=== PATIENT | male | born 1955 | race Caucasian/White ===

== ENCOUNTER 2017-05-07 19:29 | Inpatient (IN) | payer OTHER ==
[2017-05-07] MEDS ORDERED: IPRATROPIUM/ALBUTEROL 3 ML DEYVIAL ONE (19:44)
[2017-05-07] MEDS ORDERED: methylPREDNISolone SOD SUCC 125 MG/2 ML VIAL ONE (19:44)
[2017-05-07] MEDS ORDERED: methylPREDNISolone SOD SUCC 125 MG/2 ML VIAL IVP ONE (19:45)
[2017-05-07] MEDS ORDERED: IPRATROPIUM/ALBUTEROL 3 ML DEYVIAL IH ONE (19:45)
--- NOTE | 2017-05-07 19:47 | EDPHY ---
General Time Seen by Provider: 05/07/17 19:34 Narrative: CHIEF COMPLAINT: Shortness of breath HISTORY OF PRESENT ILLNESS: Patient arrives by EMS and is seen shortly after arrival. He says that he went down to his basement, where he has been told he has mold, and became acutely short of breath. No chest pain but was feeling significantly short of breath. He was unable to ambulate up the stairs. EMS was activated and they reportedly found him to be 84% on room air. He was recently been diagnosed with COPD without formal pulmonary workup. He does not require supplemental oxygen daytime or nighttime. He does not have a diagnosis of sleep apnea, nor does use a CPAP machine. He is feeling significantly better after receiving DuoNeb treatment EN route. They did not administer any steroid or other medications. He has no chest pain at this time. He has no recent illness. No other associated complaints or modifying factors REVIEW OF SYSTEMS: Ten systems reviewed and are negative unless otherwise noted in the HPI PCP: Rell Valentine SPECIALISTS: None PAST MEDICAL HISTORY: Recent diagnosis COPD. Recently finished a prednisone taper last week PAST SURGICAL HISTORY: No recent surgeries SOCIAL HISTORY: Ninety pack-year history of smoking, quit on December 05. No alcohol or drug use. FAMILY HISTORY: Noncontributory EXAMINATION General Appearance: Alert, no distress. nebulizer treatment Head: normocephalic, atraumatic Eyes: Pupils equal and round, no conjunctival pallor or injection ENT, Mouth: Mucous membranes moist Neck: Normal inspection, supple, non-tender. No meningeal signs Respiratory: Harsh, coarse rhonchi and wheezing expiratory. No retractions or distress. Minimally elevated work of breathing. Cardiovascular: Tachycardic rate. Regular rhythm. No murmur Gastrointestinal: Abdomen is soft and nontender Back: non-tender, no bony abnormalities Neurological: GCS 15. A&O, nonfocal, normal gait Skin: Warm and dry, no rash Extremities: Nontender, no pedal edema Psychiatric: Mood and affect normal DIFFERENTIAL DIAGNOSES: Including but not limited to COPD exacerbation, PE, pneumonia, pleurisy, heart failure, pulmonary edema, pleural effusion MDM: 7:40 p.m. Likely COPD exacerbation. He is feeling much better after his 1st DuoNeb treatment. He has received no other medications in route. I have ordered laboratory studies, EKG, DuoNeb, steroid, chest x-ray. He does not require BiPAP or intubation at this time. Continue to monitor closely. 8:05 p.m. EKG interpretation by Dr. Franco 8:25 p.m. CBC shows mild leukocytosis without a shift. Chemistry unremarkable. Troponin is negative. BNP is negative. Chest x-ray as read by me is consistent with COPD with no obvious pneumonia. Official radiology interpretation pending 8:40 p.m. Patient re-evaluated. He says that he is feeling better, but his work of breathing it is significant when removed from supplemental oxygen. Heart rate remains tachycardic. His lungs up improved by auscultation but only minimally. He still denies any chest pain of any kind. His oxygenation is 88-92% on room air. Given his work of breathing, borderline hypoxemia and his high elevation residence, I do not feel the patient stable for discharge home. I will contact hospitalist for admission. 8:45 p.m. Case discussed with hospitalist Dr. Mcclure. He will admit the patient to his service. He is requesting a flu and RSV swab. Patient is admitted stable condition. SUPERVISION: Patient was independently examined, but I discussed the case with my secondary supervising physician Dr. Franco - Objective Vital Signs: Initial Vital Signs Temperature (C) 98.2 F 05/07/17 19:34 Heart Rate 114 H 05/07/17 19:34 Respiratory Rate 20 05/07/17 19:34 Blood Pressure 152/110 H 05/07/17 19:34 O2 Sat (%) 97 05/07/17 19:34 O2 Delivery Mode Humidified O2 (L/minute) 4 Allergies/Adverse Reactions: No Known Allergies Allergy (Unverified 07/17/11 17:13) Home Medications: Medication Instructions Recorded Cholecalciferol Vit D3 [Vitamin D 10,000 units PO DAILY 07/17/11 2000 units (OTC)] Pharmacy Completed 1 ea [facility] [place] 07/17/11 Reconciled 07/17/11 Laboratory Results: Laboratory Results 05/07/17 19:40 05/07/17 19:40 05/07/17 05/07/17 19:40 19:40 WBC 12.53 10^3/uL H 10^3/uL (3.80-9.50) RBC 5.55 10^6/uL 10^6/uL (4.40-6.38) Hgb 17.5 g/dL g/dL (13.7-17.5) Hct 50.4 % % (40.0-51.0) MCV 90.8 fL fL (81.5-99.8) MCH 31.5 pg pg (27.9-34.1) MCHC 34.7 g/dL g/dL (32.4-36.7) RDW 12.9 % % (11.5-15.2) Plt Count 367 10^3/uL 10^3/uL (150-400) MPV 8.9 fL fL (8.7-11.7) Neut % (Auto) 81.9 % H % (39.3-74.2) Lymph % (Auto) 9.0 % L % (15.0-45.0) Andrews % (Auto) 5.1 % % (4.5-13.0) Eos % (Auto) 2.7 % % (0.6-7.6) Baso % (Auto) 0.6 % % (0.3-1.7) Nucleat RBC Rel Count 0.0 % % (0.0-0.2) Absolute Neuts (auto) 10.25 10^3/uL H 10^3/uL (1.70-6.50) Absolute Lymphs (auto) 1.13 10^3/uL 10^3/uL (1.00-3.00) Absolute Monos (auto) 0.64 10^3/uL 10^3/uL (0.30-0.80) Absolute Eos (auto) 0.34 10^3/uL 10^3/uL (0.03-0.40) Absolute Basos (auto) 0.08 10^3/uL 10^3/uL (0.02-0.10) Absolute Nucleated RBC 0.00 10^3/uL 10^3/uL (0-0.01) Immature Gran % 0.7 % % (0.0-1.1) Immature Gran # 0.09 10^3/uL 10^3/uL (0.00-0.10) Sodium 140 mEq/L mEq/L (135-145) Potassium 4.5 mEq/L mEq/L (3.5-5.2) Chloride 104 mEq/L mEq/L (97-110) Carbon Dioxide 24 mEq/l mEq/l (22-31) Anion Gap 12 mEq/L mEq/L (8-16) BUN 12 mg/dL mg/dL (7-23) Creatinine 0.9 mg/dL mg/dL (0.7-1.3) Estimated GFR > 60 Glucose 112 mg/dL H mg/dL (70-100) Calcium 9.3 mg/dL mg/dL (8.5-10.4) Troponin I < 0.012 ng/mL ng/mL (0.000-0.034) NT-Pro-B Natriuret Pep 48 pg/mL pg/mL (0-125) Medications Given: Discontinued Medications Albuterol/Ipratropium (Duoneb) 3 ml IH EDNOW ONE Stop: 05/07/17 19:46 Last Admin: 05/07/17 19:46 Dose: 3 ml Methylprednisolone Sodium Succinate (Solu-Medrol) 125 mg IVP EDNOW ONE Stop: 05/07/17 19:46 Last Admin: 05/07/17 19:46 Dose: 125 mg Departure - Departure Disposition: [facility] Inpatient Acute Clinical Impression: Chronic obstructive pulmonary disease with acute exacerbation, Hypoxemia Condition: Good Referrals: Patient,NotPresent [Unknown] - As per Instructions
[2017-05-07 19:54] LABS: PLATELET COUNT 367 10^3/uL (150-400)
--- NOTE | 2017-05-07 19:57 | CPEKG ---
Heart Rate: 104 RR Interval: 577 P-R Interval: 168 QRSD Interval: 82 QT Interval: 352 QTC Interval: 463 P Orlando: 77 QRS Orlando: 94 T Wave Orlando: 62 EKG Severity - ABNORMAL ECG - EKG Impression: SINUS TACHYCARDIA EKG Impression: RIGHT AXIS DEVIATION EKG Impression: ABNRM R PROG, CONSIDER ASMI OR LEAD PLACEMENT Electronically Signed By: Saleem Rivas 08-May-2017 12:55:10
[2017-05-07] MEDS ORDERED: ONDANSETRON 4 MG/2 ML VIAL IVP PRN (21:07)
[2017-05-07] MEDS ORDERED: ACETAMINOPHEN 325 MG TAB PO PRN (21:07)
[2017-05-07] MEDS ORDERED: ONDANSETRON DISINTEGRATING 4 MG TAB PO PRN (21:07)
[2017-05-07] MEDS ORDERED: ALBUTEROL 3 ML DEYVIAL IH PRN (21:07)
--- NOTE | 2017-05-07 21:38 | GHP ---
[f rep st] HISTORY AND PHYSICAL DATE OF ADMISSION: 05/07/2017 The patient is a 61-year-old gentleman with history of relatively recently diagnosed COPD who present s with increased work of breathing. He was in his usual state of health until today when he had incr eased work of breathing. In the past, he has been given prednisone, which he has taken kind of on a p.r.n. basis. Outpatient regimen includes albuterol and Advair. He may or may not have been prescribed tiotropium. He has not been coughing up. He has had a dry cough. No hemoptysis. He finished a prednisone taper last week. He has not had fever, chills, nausea, vomiting, or diarrhea. REVIEW OF SYSTEMS: Complete 10-point review of systems conducted. Negative except as noted in the H PI. PAST MEDICAL HISTORY: COPD without PFTs. SOCIAL HISTORY: Ninety pack years, quit in November. No alcohol. No drugs. Works in [employer]. FAMILY HISTORY: Reviewed and unremarkable. ALLERGIES: No known drug allergies. PHYSICAL EXAMINATION: VITAL SIGNS: Temp 36.8, blood pressure /110, pulse 110, breathing 2 0 times a minute, 97% on 5 L. GENERAL: No acute distress. Speaking in complete sentences. HEENT: Sclerae are anicteric. Oropharynx clear. Mucous membranes moist. NECK: Supple without lymphadeno kenyatta or JVD. LUNGS: Distant breath sounds. Moderate air movement. No wheeze. HEART: S1, S2. T achycardic. ABDOMEN: Soft, nontender, nondistended. LOWER EXTREMITIES: Without edema. Calves are nontender. SKIN: Without rash. NEUROLOGIC: Nonfocal. LABORATORY: Sodium 140, potassium 4.5, chloride 104, bicarb 24, BUN 12, creatinine 0.9, glucose 112. Troponin less than 0.012. BNP is 48. Influenza is pending. RSV is pending. White count is 12.5, hematocrit 50, platelets 667,000. Chest x-ray interpreted by me shows hyperinflation, possible pulmonary arterial hypertension. EKG in terpreted by me, sinus tach at 104 with normal axis and intervals. No ST or T-wave changes. I discu ssed the case with AUTUMN Andrews of the emergency department. ASSESSMENT/PLAN: This is a 61-year-old gentleman with chronic obstructive pulmonary disease exacerba tion. 1. Chronic obstructive pulmonary disease exacerbation. I suspect this was brought on by a viral ill ness. He is being tested for influenza and respiratory syncytial virus. I will start him on Solu-Me drol, DuoNeb p.r.n., albuterol, and doxycycline. 2. Chronic obstructive pulmonary disease. The patient would probably benefit from a consultation [facility]. He has not seen a non destructive testing technician yet since his diagnosis. I think it wo uld be reasonable to consult them in the morning. 3. Acute hypoxemic respiratory failure. This is attributable to chronic obstructive pulmonary disea se flare or exacerbation. Notably, the patient lives [place] [address] [place] [address] [facility]. May need oxygen on discharge. 4. Prophylaxis. Pharmacologic prophylaxis is indicated. Start low-molecular weight heparin. DISPOSITION: Inpatient status. /[id number]/MODL
[2017-05-07] MEDS ORDERED: DOXYCYCLINE HYCLATE 100 MG CAP/TAB ONE (22:12)
[2017-05-07] MEDS: DOXYCYCLINE HYCLATE 100 MG CAP/TAB PO SCH (22:14)
[2017-05-08] MEDS: methylPREDNISolone SOD SUCC 125 MG/2 ML VIAL IVP SCH ×4 (00:56→18:28)
[2017-05-08] MEDS: IPRATROPIUM/ALBUTEROL 3 ML DEYVIAL IH SCH ×4 (06:26→21:57)
--- NOTE | 2017-05-08 07:39 | PDMN ---
Medical Necessity Medical necessity: Pt meets INPT criteria per MD and [facility] [place] COPD (COPD exacerbation with acute hypoxemic respiratory failure - RA sat 84%; requiring supplemental O2, nebs, IV steroids, est. LOS >2 MN).
[2017-05-08] MEDS: DOXYCYCLINE HYCLATE 100 MG CAP/TAB PO SCH ×2 (07:54→21:08)
[2017-05-08] MEDS: ENOXAPARIN 40 MG/0.4 ML SYR SC SCH (07:54)
[2017-05-08] MEDS ORDERED: PNEUMOCOCCAL 0.5ML VACCINE VIAL IM ONE (12:10)
--- NOTE | 2017-05-08 13:07 | HOSPPROG ---
Hospitalist Progress Note Assessment/Plan: 61y male with c/o sob. First encounter, chart reviewed. #COPD -cont supportive care -will need fu with pulm outpt -appreciate pulm consult #Tachy -improving -cont to follow #AHRF -cont supplemental O2 -likely will need at time of DC #COPD exac -improving #Dispo -unclear -still tachy and hypoxic -follow in hospital Subjective: Feeling better. Still sob and cough. Objective: Vital Signs Temp Pulse Resp BP Pulse Ox 36.7 C 102 H 18 115/71 93 05/08/17 11:57 05/08/17 12:14 05/08/17 12:14 05/08/17 11:57 05/08/17 12:14 05/07/17 05/08/17 05/09/17 05:59 05:59 05:59 Intake Total 611 Balance 611 - Physical Exam Constitutional: no apparent distress, appears nourished, not in pain Eyes: PERRL, anicteric sclera, EOMI Ears, Nose, Mouth, Throat: moist mucous membranes, hearing normal, ears appear normal Cardiovascular: tachycardia, No JVD, No edema Respiratory: no respiratory distress, reduced air movement, rhonchi Gastrointestinal: normoactive bowel sounds, No tenderness, No ascites Skin: warm, normal color, No mottled Musculoskeletal: normal joint ROM, no joint effusions, generalized weakness Neurologic: AAOx3 Psychiatric: interacting appropriately, not anxious, not encephalopathic, thought process linear ICD10 Worksheet Patient Problems: Problems Problem Status Onset Tobacco user Active Chronic obstructive pulmonary disease with acute exacerbation Acute Hypoxemia Acute
--- NOTE | 2017-05-08 17:57 | ASMTCMCOM ---
CM Note CM Note Notes: No needs identified, pt lives with at [place] in [facility]. Pt will likely dc independent but with new O2 and will f/u outpt with pulmonology. No therapies ordered, CM available for any changes. DC Plan: Independent Date Signed: 05/08/2017 05:56 PM Electronically Signed By:Ashley Klein RN
[2017-05-09] MEDS: methylPREDNISolone SOD SUCC 125 MG/2 ML VIAL IVP SCH ×2 (00:52→06:10)
[2017-05-09 03:59] VITALS: RESP 18
[2017-05-09] MEDS: IPRATROPIUM/ALBUTEROL 3 ML DEYVIAL IH SCH ×2 (05:01→11:10)
[2017-05-09] MEDS: DOXYCYCLINE HYCLATE 100 MG CAP/TAB PO SCH (08:11)
[2017-05-09] MEDS: ENOXAPARIN 40 MG/0.4 ML SYR SC SCH (08:11)
[2017-05-09] MEDS ORDERED: FLUTICASONE/SALMETER 250/50MCG DISKUS IH SCH (09:00)
--- NOTE | 2017-05-09 09:14 | PDHOMEO2F ---
Home Oxygen Face to Face Home Orders: I certify that a physician or a nurse practitioner or physician's escrow assistant has had a [place] encounter with this patient on the date of this order due to the diagnosis listed, which relates to the primary reason the patient requires home oxygen. Alternative treatments have been tried, or considered, and deemed ineffective. It is anticipated that supplemental oxygen will result in improvement with treatment. Home oxygen qualifying diagnosis: copd SpO2 on room air (%): 81 Frequency of home oxygen needed: continuous Home oxygen liters per minute: 4 Home oxygen delivery device: nasal cannula Concentrator: Yes E-tanks for mobility and back up: Yes If ordering portable O2, is the patient mobile in the home?: Yes I certify that, based on these findings, the home oxygen is medically necessary for this patient for the following length of time. Length of time home oxygen needed: 99 years
[2017-05-09] MEDS ORDERED: predniSONE 20 MG TAB PO SCH (09:15)
--- NOTE | 2017-05-09 09:21 | HOSPPROG ---
Hospitalist Progress Note Assessment/Plan: 61y male with c/o sob. First encounter, chart reviewed. #COPD change to po pred needs slow outpt taper Tachy suspect 2/2 nebs no CP AHRF -cont supplemental O2 -likely will need at time of DC COPD exac -improving Dispo home today >30 minutes on dc Subjective: anxious for dc Objective: Vital Signs Temp Pulse Resp BP Pulse Ox 36.9 C 87 18 117/76 94 05/09/17 07:14 05/09/17 07:14 05/09/17 07:14 05/09/17 07:14 05/09/17 07:14 05/08/17 05/09/17 05/10/17 05:59 05:59 05:59 Intake Total 611 1740 Output Total 1700 Balance 611 40 - Physical Exam Constitutional: no apparent distress, appears nourished Eyes: PERRL, anicteric sclera Ears, Nose, Mouth, Throat: moist mucous membranes, hearing normal Cardiovascular: no murmur, rub, or gallop, tachycardia Respiratory: no respiratory distress, other (no wheeze. imporved air movement from admit) Gastrointestinal: normoactive bowel sounds, soft, non-tender abdomen Genitourinary: no bladder fullness, No mireles in urethra Skin: warm, normal color Musculoskeletal: full muscle strength Neurologic: AAOx3 ICD10 Worksheet Patient Problems: Problems Problem Status Onset Chronic obstructive pulmonary disease with acute exacerbation Acute Hypoxemia Acute Tobacco user Active
[2017-05-09 14:31] VITALS: BP 132/84; PULSE 104; TEMP 98.4; O2SAT 93
--- NOTE | 2017-05-09 14:50 | GDS ---
[f rep st] DISCHARGE SUMMARY DISCHARGE DIAGNOSES: 1. Chronic obstructive pulmonary disease with exacerbation. 2. Acute on chronic hypoxemic respiratory failure. Please see admission history and physical by Dr. Piter Mcclure. HOSPITAL COURSE: The patient presented with increased work of breathing. He had a chest x-ray, with out pneumonia. He had viral studies showing no evidence of RSV or influenza. The patient did not hooper ve pneumonia, was treated on steroid, prednisone. He had intermittent tachycardia nebuliz ers. He was 87% on room air on the day of discharge, requiring 2-4 L. He was discharged home with a slow steroid taper over the course of 5 weeks, as well as Advair. He has tiotropium at home, to com plete a 7-day course of doxycycline and p.r.n. albuterol. [facility]. /[id number]/MODL
--- NOTE | 2017-05-09 15:53 | ASDISCHSUM ---
Discharge Information Plan Status:Home with No Needs Medically Cleared to Leave: Discharge Date:05/09/2017 03:00 PM CM D/C Disposition:Home, Routine, Self-Care ADT D/C Disposition:Home, Routine, Self-Care Projected Discharge Date:05/09/2017 03:00 PM Transportation at D/C:Family Discharge Delay Reason: Follow-Up Date:05/09/2017 03:00 PM Discharge Slot: Final Diagnosis: Placement Information Patient Contact Information Contact Name:CRISTIANE Relationship: Address:[address] City:[facility] Phone: [facility]/Zip Code:[place] [address] Email: Financial Information Financial Class:HMO and PPO Plans Primary Plan Desc:HMO [employer] Primary Plan Number:[id number] Secondary Plan Desc: Secondary Plan Number: Assessment Information [facility] CM Progress Note CM Note CM Note Notes: No needs identified, pt lives with at [address] in [facility]. Pt will likely dc independent but with new O2 and will f/u outpt with pulmonology. No therapies ordered, CM available for any changes. DC Plan: Independent Date Signed: 05/08/2017 05:56 PM Electronically Signed By:Ashley Klein RN [facility] CM Progress Note CM Note CM Note Notes: Pt. d/c'ed independently today to his Liz. O2 was set up for Pt by RT. Date Signed: 05/09/2017 03:52 PM Electronically Signed By:Ramila Yeung LCSW Intervention Information
== END 2017-05-09 15:00 | disposition home or self-care (01) | DRG 190 ==
LOC: EDUNIT# → F3E 22:45
PROVIDERS: ADMIT Internal Medicine; ATTEND Internal Medicine
DX: J44.1 Chronic obstructive pulmonary disease with (acute) exacerbation (principal); J96.21 Acute and chronic respiratory failure with hypoxia; Z87.891 Personal history of nicotine dependence
CPT/HCPCS: 96374; G0009; J1650; J2930; J7512

== ENCOUNTER 2017-12-02 18:31 | Inpatient (IN) | payer OTHER ==
[2017-12-02] MEDS ORDERED: ALBUTEROL 3 ML DEYVIAL IH ONE (18:38)
[2017-12-02] MEDS ORDERED: MAGNESIUM SULF 2 GM/WATER 50 ML IV ONE (18:40)
--- NOTE | 2017-12-02 18:40 | EDPHY ---
H & P Time Seen by Provider: 12/02/17 18:39 HPI/ROS: CHIEF COMPLAINT: Trouble breathing HISTORY OF PRESENT ILLNESS: Admitted in April of this year, has history of COPD. Worse for last 2 hr and severely short of breath, brought in by EMS on CPAP. Says breathing difficulty is severe, worse with lying flat or exertion. Not associated with cough or chest pain or fever. REVIEW OF SYSTEMS: Eye: no change in vision ENT: no sore throat Cardiac: no chest pain or syncope Pulmonary: HPI Abdomen: no vomiting, diarrhea, abdominal pain Musculoskeletal: no back pain Skin: no rash Neuro: no headache Constitutional: no fever : no urinary symptoms A comprehensive 10 point review of systems is otherwise negative aside from elements mentioned in the history of present illness. PAST MEDICAL HISTORY: H and P dated 05/07/2017 personally reviewed includes COPD Social history: Quit tobacco General Appearance: Alert and conversant, cooperative. Eyes: No scleral icterus. ENT, Mouth: Normal mucous membranes. Respiratory: Tachypneic, decreased breath sounds bilaterally, speaks in 2-3 word sentences. Cardiovascular: Regular rate and rhythm. Tachycardic. Gastrointestinal: Abdomen is soft and non tender. Neurological: Alert, face symmetric, normal motor and sensory in extremities. Skin: Warm and dry, no rashes. Musculoskeletal: No peripheral edema. Psychiatric: Cooperative but appears mildly anxious. Emergency Department course/MDM: Patient received IV Solu-Medrol pre-hospital. Continued albuterol nebulizer, IV magnesium, EKG and chest x-ray. Does not have chest pain or fever, I think that pulmonary embolism or pneumonia would be unlikely. He says it is just like previous exacerbation. 1934: Patient still has pretty quiet lungs, but is feeling better, still on BiPAP. Admission to Dr. Gonzalez, discussed. Smoking Status: Former smoker Constitutional: Initial Vital Signs Temperature (C) 36.7 C 12/02/17 18:36 Heart Rate 142 H 12/02/17 18:36 Respiratory Rate 24 H 12/02/17 18:36 Blood Pressure 202/135 H 12/02/17 18:36 O2 Sat (%) 97 12/02/17 18:36 O2 Delivery Mode CPAP O2 (L/minute) 15 Allergies/Adverse Reactions: No Known Allergies Allergy (Unverified 07/17/11 17:13) Home Medications: Medication Instructions Recorded Herbals/Supplements -Info Only 1 ea PO DAILY 05/07/17 Multivitamins [Multivitamin (*)] 1 each PO DAILY 05/07/17 Albuterol [Proventil Inhaler HFA 1 - 2 puffs IH Q4H PRN #1 mdi 05/09/17 (*)] Fluticasone/Salmeter 250/50Mcg 1 puffs IH DAILY 12/02/17 [Advair 250/50 (*)] Umeclidinium Brm/Vilanterol Tr 1 puffs IH DAILY 12/02/17 [Anoro Ellipta 62.5-25 Mcg INH] Medical Decision Making - Diagnostics EKG Interpretation: 12-lead EKG interpreted by me; official reading is in computer system. My interpretation is sinus tachycardia with a late anterior RS transition, no acute ST changes. Imaging Results: Imaging Impressions Chest X-Ray 12/02/17 18:38 Impression: COPD with mild perihilar bronchitis, but no convincing focal infiltrate (note: there is some limitation of evaluation the left perihilar region and the left apex because of external hardware, and when clinically feasible, PA and lateral upright views would be helpful). Chest x-ray personally interpreted, hyperinflation without pneumonia or infiltrate or pneumothorax, normal mediastinum and normal heart size. Imaging: I viewed and interpreted images myself Differential Diagnosis: Differential diagnosis considered for shortness of breath including but not limited to pulmonary infectious process, COPD, asthma, pulmonary embolus and congestive heart failure. Critical Care Time: Critical care time spent by me, Dr. Nix, exclusively with the care of this patient was 30 minutes, exclusive of PA or MACHINE PLUG SHAPER time and exclusive of separate procedures. The organ system at risk was pulmonary and I ordered IV magnesium, multiple nebulizer treatments, noninvasive ventilation and admission to stabilize the patient and prevent worsening of the patient's condition. - Data Points Laboratory Results: Laboratory Results 12/02/17 18:31 12/02/17 18:31 12/02/17 12/02/17 12/02/17 18:45 18:31 18:31 WBC 13.75 10^3/uL H 10^3/uL (3.80-9.50) RBC 5.44 10^6/uL 10^6/uL (4.40-6.38) Hgb 16.6 g/dL g/dL (13.7-17.5) Hct 49.2 % % (40.0-51.0) MCV 90.4 fL fL (81.5-99.8) MCH 30.5 pg pg (27.9-34.1) MCHC 33.7 g/dL g/dL (32.4-36.7) RDW 12.8 % % (11.5-15.2) Plt Count 440 10^3/uL H 10^3/uL (150-400) MPV 8.9 fL fL (8.7-11.7) Neut % (Auto) 75.9 % H % (39.3-74.2) Lymph % (Auto) 12.1 % L % (15.0-45.0) [place] % (Auto) 6.7 % % (4.5-13.0) Eos % (Auto) 3.6 % % (0.6-7.6) Baso % (Auto) 0.6 % % (0.3-1.7) Nucleat RBC Rel Count 0.0 % % (0.0-0.2) Absolute Neuts (auto) 10.43 10^3/uL H 10^3/uL (1.70-6.50) Absolute Lymphs (auto) 1.67 10^3/uL 10^3/uL (1.00-3.00) Absolute Monos (auto) 0.92 10^3/uL H 10^3/uL (0.30-0.80) Absolute Eos (auto) 0.50 10^3/uL H 10^3/uL (0.03-0.40) Absolute Basos (auto) 0.08 10^3/uL 10^3/uL (0.02-0.10) Absolute Nucleated RBC 0.00 10^3/uL 10^3/uL (0-0.01) Immature Gran % 1.1 % % (0.0-1.1) Immature Gran # 0.15 10^3/uL H 10^3/uL (0.00-0.10) Sodium 137 mEq/L mEq/L (135-145) Potassium 4.5 mEq/L mEq/L (3.3-5.0) Chloride 104 mEq/L mEq/L (97-110) Carbon Dioxide 24 mEq/l mEq/l (22-31) Anion Gap 9 mEq/L mEq/L (8-16) BUN 18 mg/dL mg/dL (7-23) Creatinine 0.8 mg/dL mg/dL (0.7-1.3) Estimated GFR > 60 Glucose 92 mg/dL mg/dL (70-100) Calcium 9.8 mg/dL mg/dL (8.5-10.4) POC Troponin I 0.00 ng/mL ng/mL (0.00-0.08) Medications Given: Discontinued Medications Albuterol (Proventil Neb) 15 ml IH EDNOW ONE Stop: 12/02/17 18:39 Last Admin: 12/02/17 18:47 Dose: 15 ml Magnesium Sulfate (Magnesium Sulf 2 Gm (Premix)) 50 mls @ 50 mls/hr IV EDNOW ONE Stop: 12/02/17 19:39 Last Admin: 12/02/17 19:06 Dose: 50 mls Point of Care Test Results: Chemistry 12/02/17 18:45 POC Troponin I 0.00 ng/mL ng/mL (0.00-0.08) Departure - Departure Disposition: [facility] Inpatient Acute Clinical Impression: Chronic obstructive pulmonary disease with acute exacerbation Condition: Fair
[2017-12-02 18:53] LABS: PLATELET COUNT 440 10^3/uL (150-400)
--- NOTE | 2017-12-02 18:57 | CPEKG ---
Test Reason : OPEN Blood Pressure : / mmHG Vent. Rate : 138 BPM Atrial Rate : 138 BPM P-R Int : 137 ms QRS Dur : 075 ms QT Int : 304 ms P-R-T Axes : 084 092 062 degrees QTc Int : 461 ms Sinus tachycardia Probable anterior infarct, old Confirmed by Lele Nix ([id number]) on 12/02/2017 6:57:11 PM Referred By: Confirmed By:Lele Nix
[2017-12-02] MEDS ORDERED: ONDANSETRON 4 MG/2 ML VIAL IVP PRN (20:36)
[2017-12-02] MEDS ORDERED: ALBUTEROL 3 ML DEYVIAL IH PRN (20:36)
[2017-12-02] MEDS ORDERED: ONDANSETRON DISINTEGRATING 4 MG TAB PO PRN (20:36)
[2017-12-02] MEDS ORDERED: HYDROCODONE/APAP 5/325 TAB PO PRN (20:36)
[2017-12-02] MEDS ORDERED: oxyCODONE IR 5 MG TAB PO PRN (20:36)
[2017-12-02] MEDS ORDERED: ACETAMINOPHEN 325 MG TAB PO PRN (20:36)
[2017-12-02] MEDS ORDERED: HYDROmorphONE/DILAUDID 1 MG/ML INJ IVP PRN (20:36)
[2017-12-02] MEDS: IPRATROPIUM/ALBUTEROL 3 ML DEYVIAL IH SCH (21:14)
[2017-12-02] MEDS: AZITHROMYCIN IV 500 MG in NS 250 ML IV SCH (22:37)
--- NOTE | 2017-12-02 23:01 | GHP ---
DATE OF ADMISSION: 12/02/2017 CHIEF COMPLAINT: Shortness of breath. HISTORY: This is a 62-year-old man, past medical history of COPD, presenting with shortness of breat h and generalized weakness. The patient notes that he has been somewhat short of breath for the last several days, but that today it became severe. He notes he is dehydrated and for that reason he thi nks he has not had significant sputum production. He denies chest pain or fever. He has had similar symptoms in the past and notes that it always gets better with prednisone. He is currently being wo rked up by Cardiology for coronary artery disease noted on a CT scan and also is under the care of a urologist and power lineman. He states he has had many medical tests in the last week or 2. PAST MEDICAL HISTORY: Includes: 1. COPD. 2. Chronic hypoxic respiratory failure, baseline 1-3 L. 3. AAA recently found and noted to be approximately 4 cm. FAMILY HISTORY: Notable for COPD. SOCIAL HISTORY: Patient is a long-time smoker, but quit 1 year ago. Has a greater than 40 pack-year smoking history. Denies significant alcohol use. He lives independently. REVIEW OF SYSTEMS: 10-point review of systems obtained, negative except as per HPI. HOME MEDICATIONS: Include: 1. Advair. 2. Albuterol. 3. Anoro Ellipta. 4. Multivitamin. ALLERGIES: No known drug allergies. PHYSICAL EXAM: VITAL SIGNS: BP 107/81, heart rate 116, respiratory rate 20, O2 sats 95% on 3 L, tem perature is 36.6. GENERAL APPEARANCE: This is a chronically ill-appearing male. He is awake and al ert. He is in no acute distress. EYES: Anicteric. HENT: Oropharynx clear. CARDIOVASCULAR: Tach y, regular, no MRG. PULMONARY: Decreased breath sounds throughout with occasional expiratory wheeze . He does have increased work of breathing and speaking in 3-4 word sentences. GI: Soft, nontender , nondistended. EXTREMITIES: No clubbing, cyanosis, or edema. SKIN: Warm, dry, well perfused. NE URO/PSYCH: Oriented and appropriate. CLINICAL DATA: Labs reviewed notable for white blood cell count of 13.75, hematocrit of 49.2. Chemi stry is unremarkable. EKG personally reviewed and interpreted, shows sinus tachycardia. Chest x-ray personally reviewed and interpreted, shows full COPD without clear focal infiltrate. ASSESSMENT/PLAN: This is a 62-year-old man with history of chronic obstructive pulmonary disease, pr esenting with acute chronic obstructive pulmonary disease exacerbation. 1. Acute chronic obstructive pulmonary disease exacerbation without evidence of associated pneumonia but query viral illness. Respiratory PCR panel has been sent and is pending. Patient will be start ed on scheduled DuoNeb, p.r.n. albuterol, and IV methylprednisolone will be continued overnight. Als o will add azithromycin for possible atypical infection. He is followed by Dr. Hastings. 2. Acute on chronic hypoxic respiratory failure. Patient initially requiring BiPAP. However, he hooper s currently been weaned back to 3 L status post breathing treatments. Currently back to his baseline 3 L of O2. 3. Abdominal aortic aneurysm. This is followed by Dr. Kate and noted to be not large enough to require intervention at this time. We will continue to follow as an outpatient. 4. Tachycardia. Suspect this is secondary to his acute illness as per above. EKG without ischemic changes. 5. Leukocytosis. Suspect this is stress response. However, infection is certainly possible. Again , respiratory PCR panel pending. Started on azithromycin. Otherwise, holding off on further antibio tics as I suspect this is not infectious source. 6. Disposition: Inpatient status. Suspect patient will require greater than 48-hour stay for evalu ation and management of above. 7. Patient is new to my care. Old records reviewed and summarized as per HPI and past medical histo ry. Care plan reviewed with ER physician including plans for admission. /[id number]/MODL
[2017-12-03 04:00] LABS: PLATELET COUNT 401 10^3/uL (150-400)
[2017-12-03] MEDS: IPRATROPIUM/ALBUTEROL 3 ML DEYVIAL IH SCH ×4 (05:10→21:34)
--- NOTE | 2017-12-03 09:03 | PDMN ---
Medical Necessity Medical necessity: MCG: M100 COPD A-2 days: copd exacerbation SOB, gen. weakness, tachycardia, decreased breath sounds, exp. wheeze, increased work of breathing speaking 3-4 word sentences, initially on BiPAP now 3 L O2 --PMHx: COPD, chronic hypoxic resp failure 1-3L baseline, AAA approx. 4 cm., anticipate > 2 MN ongoing med nec care
[2017-12-03] MEDS: ENOXAPARIN 40 MG/0.4 ML SYR SC SCH (09:43)
[2017-12-03] MEDS: MULTIVITAMINS 1 EACH TAB PO SCH (09:43)
[2017-12-03] MEDS: FLUTICASONE/SALMETER 250/50MCG DISKUS IH SCH (10:17)
[2017-12-03] MEDS: methylPREDNISolone SOD SUCC 125 MG/2 ML VIAL IVP SCH ×3 (10:22→18:15)
--- NOTE | 2017-12-03 10:32 | HOSPPROG ---
Hospitalist Progress Note Assessment/Plan: Acute on chronic hypoxemic respiratory failure 2/2 COPD exacerbation - on 3 LPM here which is his baseline, though note he lives [place] -cont scheduled duonebs plus prn albuterol nebs -start IV solumedrol (hasn't received any steroids since admission) Tachycardia - sinus tac. With hypoxemia, SOB, recent steroid use and persistent tachycardia, need to r/o PE -check stat d dimer, if positive, proceed with CTA AAA - outpt f/u Full code DVT PPX - lovenox Dispo - cont inpt Subjective: Pt is doing ok, quite anxious about his elevated heart rate. Denies CP. Not significantly SOB at rest. No fevers/chills. Objective: Vital Signs Temp Pulse Resp BP Pulse Ox 37.1 C 99 17 103/85 H 96 12/03/17 08:39 12/03/17 08:39 12/03/17 08:39 12/03/17 08:39 12/03/17 08:39 Laboratory Results 12/03/17 03:41 12/03/17 03:41 12/02/17 12/03/17 12/04/17 05:59 05:59 05:59 Intake Total 400 Balance 400 - Physical Exam Constitutional: no apparent distress Eyes: PERRL Ears, Nose, Mouth, Throat: moist mucous membranes Cardiovascular: tachycardia Respiratory: no respiratory distress, reduced air movement, expiratory wheeze Gastrointestinal: normoactive bowel sounds, soft, non-tender abdomen Skin: warm Musculoskeletal: full muscle strength Neurologic: AAOx3 Psychiatric: interacting appropriately ICD10 Worksheet Patient Problems: Problems Problem Status Onset Chronic obstructive pulmonary disease with acute exacerbation Acute Tobacco user Active Hypoxemia Acute
--- NOTE | 2017-12-03 15:05 | ASMTCMCOM ---
CM Note CM Note Notes: 12/03/2017 Case Management Note Discussed pt during rounds this morning. Pt admitted for acute on chronic hypoxemic respiratory failure 2/2 COPD exacerbation. Met w/pt to discuss d/c needs. Pt is and lives with his in [facility] [place]. There are no d/c PT or OT needs at this time per evals. Discussed benefits of Palliative Care. Pt in agreement. Discussed agency options, pt chose [facility]. Faxed referral to [facility]. Case Management d/c poc: Home independent with follow up as directed with [facility] to follow as outpatient. Case Management to follow for any further needs. Date Signed: 12/03/2017 03:04 PM Electronically Signed By:Sussy Lopez RN
[2017-12-03] MEDS ORDERED: methylPREDNISolone SOD SUCC 125 MG/2 ML VIAL IVP SCH (21:00)
[2017-12-03] MEDS: AZITHROMYCIN IV 500 MG in NS 250 ML IV SCH (21:43)
[2017-12-04] MEDS: methylPREDNISolone SOD SUCC 125 MG/2 ML VIAL IVP SCH ×3 (00:08→12:03)
[2017-12-04] MEDS: IPRATROPIUM/ALBUTEROL 3 ML DEYVIAL IH SCH ×2 (05:58→11:41)
[2017-12-04] MEDS: MULTIVITAMINS 1 EACH TAB PO SCH (08:44)
[2017-12-04] MEDS: ENOXAPARIN 40 MG/0.4 ML SYR SC SCH (08:44)
[2017-12-04] MEDS: FLUTICASONE/SALMETER 250/50MCG DISKUS IH SCH (11:39)
[2017-12-04 11:51] VITALS: BP 124/81
--- NOTE | 2017-12-04 14:30 | ASMTDCNOTE ---
Case Management Discharge Discharge Order Complete? Answers: Yes Patient to Obtain Answers: via Family Medications Transportation Arranged Answers: Family/Friends EMTALA Complete Answers: No Case Management Transport Answers: No Form Complete Faxed Final Orders Answers: Yes Agency/Facility Transfer Answers: Yes Report Printed & Faxed to Receiving Agency Family Notified Answers: No Discharge Comments Notes: Pts case discussed in tx rounds. Pt is being discharged today. Pt is agreeable to follow up with outpatient palliative services. DC paperwork sent to [facility]. CM available for changes. Plan: Home w/ outpatient [facility] palliative follow up Date Signed: 12/04/2017 02:30 PM Electronically Signed By:KANDIS Poole
--- NOTE | 2017-12-04 14:31 | ASDISCHSUM ---
Discharge Information Plan Status:Outpatient Palliative Care Medically Cleared to Leave: Discharge Date:12/04/2017 01:55 PM CM D/C Disposition: ADT D/C Disposition:Home, Routine, Self-Care Projected Discharge Date:12/04/2017 11:00 AM Transportation at D/C: Discharge Delay Reason: Follow-Up Date:12/04/2017 11:00 AM Discharge Slot: Final Diagnosis: Placement Information Referral Type:Palliative Care Referral ID:[id number] Provider Name:[facility] Address 1:[email or web address] [place] Phone Number: Address 2: Fax Number: City:[place] Selection Factors: State:[place] Patient Contact Information Contact Name:CRISTIANE Relationship: Address:[address] [address] City:[facility] Phone: [facility] Code:[place] [address] Email: Financial Information Financial Class:[facility] Primary Plan Desc:[employer] Primary Plan Number:[id number] Secondary Plan Desc: Secondary Plan Number: Assessment Information LACE LACE Length of stay for Answers: 2 days current admission Acuity / Level of Answers: Yes Care: Did the patient have an inpatient admission? Comorbidities - select Answers: Chronic pulmonary disease all that apply Other Notes: Diverticulitis # of Emergency department Answers: 1-2 visits in the last 6 months Score: 9 Date Signed: 12/04/2017 02:28 PM Electronically Signed By:KANDIS Poole [facility] Progress Note LEONA Larsen CM Note Notes: 12/03/2017 Case Management Note Discussed pt during rounds this morning. Pt admitted for acute on chronic hypoxemic respiratory failure 2/2 COPD exacerbation. Met w/pt to discuss d/c needs. Pt is and lives with his in [facility] [place] [place]. There are no d/c PT or OT needs at this time per evals. Discussed benefits of Palliative Care. Pt in agreement. Discussed agency options, pt chose [facility]. Faxed referral to [facility]. Case Management d/c poc: Home independent with follow up as directed with [facility] to follow as outpatient. Case Management to follow for any further needs. Date Signed: 12/03/2017 03:04 PM Electronically Signed By:Sussy Lopez RN Case Management Discharge Plan Note Case Management Discharge Discharge Order Complete? Answers: Yes Patient to Obtain Answers: via Family Medications Transportation Arranged Answers: Family/Friends EMTALA Complete Answers: No Case Management Transport Answers: No Form Complete Faxed Final Orders Answers: Yes Agency/Facility Transfer Answers: Yes Report Printed & Faxed to Receiving Agency Family Notified Answers: No Discharge Comments Notes: Pts case discussed in tx rounds. Pt is being discharged today. Pt is agreeable to follow up with outpatient palliative services. DC paperwork sent to [facility]. CM available for changes. Plan: Home w/ outpatient [facility] palliative follow up Date Signed: 12/04/2017 02:30 PM Electronically Signed By:KANDIS Poole Intervention Information
--- NOTE | 2017-12-04 16:51 | GDS ---
DISCHARGE DIAGNOSES: 1. Acute on chronic hypoxemic respiratory failure secondary to acute exacerbation of chronic obstruc tive pulmonary disease. 2. Chronic obstructive pulmonary disease. 3. Sinus tachycardia likely hastened by chronic obstructive pulmonary disease as well as steroid use . 4. Abdominal aortic aneurysm, which will require ongoing outpatient followup. HISTORY: For details, please see history and physical dated December 02, 2017. The patient is a 62-year-old male with a history of COPD and chronic oxygen dependence on 2 to 3 L/mi nute at baseline, who presents to the emergency department with shortness of breath, weakness, and wh eezing. He was admitted to the hospital for further management. HOSPITAL COURSE: The patient was admitted to the cardiac telemetry unit. His chest x-ray showed kristi dence of COPD with hyperexpanded lung nam, but no focal infiltrate. He was afebrile. He was jose a marge with scheduled DuoNeb's, p.r.n. albuterol nebs, and IV steroids. Given his persistent tachycardi a, a D-dimer was drawn, which was negative. He also had a negative troponin. On the day of discharg e, he feels his symptoms have significantly improved and are back to his baseline. He is also on his baseline oxygen requirement of 3 L/minute, saturating in the mid 90s. It is acknowledged he does li ve at elevation, although his sats are good enough that I suspect he will be able to maintain his [place] DISPOSITION: Patient is discharged home in stable condition with outpatient palliative care planned. FOLLOWUP: 1. Dr. Candido Hastings, Pulmonology in 3-4 weeks as planned. 2. Primary care. DISCHARGE MEDICATIONS: Please see [facility] completed outpatient medication list. New medications on discharge include: Prednisone 60 mg p.o. daily for 3 more days. He will then dec rease by 10 mg every 3 days to complete a taper course at which point, he will follow up with Pulmono logy. He will continue all other outpatient medications as previously prescribed including Anoro, pl us or minus Advair, albuterol. /[id number]/MODL
== END 2017-12-04 13:55 | disposition home or self-care (01) | DRG 190 ==
LOC: EDUNIT# → F2W 20:38
PROVIDERS: ADMIT Internal Medicine; ATTEND Internal Medicine
DX: J44.1 Chronic obstructive pulmonary disease with (acute) exacerbation (principal); J96.21 Acute and chronic respiratory failure with hypoxia; R00.0 Tachycardia, unspecified; I71.4 Abdominal aortic aneurysm, without rupture; Z99.81 Dependence on supplemental oxygen; Z23 Encounter for immunization
CPT/HCPCS: 84484-PO; 96365; 97161-GP; 97165-GO; G0008; J0456; J1650; J2930; J3475; J7613